=== PATIENT | female | born 1965 | race African-American/Black ===

== ENCOUNTER 2020-01-01 14:07 | Emergency (ER) | payer MEDICAID ==
[~2020-01-01] VITALS: Ht 157.5 cm; Wt 52.0 kg
[~2020-01-01 14:07] MED LIST: BUPR-43 PO; GLIP5TAB12 PO; LOSA25TA3 PO; MIRT45TA83 PO; NITR0.4T49 SL; OLAN10TA19 PO
[2020-01-01 14:32] VITALS: BP 156/87
== END 2020-01-01 15:36 | disposition home or self-care (01) ==
LOC: ER 14:13
DX: Z48.01 Encounter for change or removal of surgical wound dressing (principal); E11.9 Type 2 diabetes mellitus without complications; I10 Essential (primary) hypertension; Z98.890 Other specified postprocedural states; Z88.8 Allergy status to other drugs, medicaments and biological substances; Z79.899 Other long term (current) drug therapy
CPT/HCPCS: 99281